=== PATIENT | male | born 1950 | race Caucasian/White ===

== ENCOUNTER 2025-08-30 09:45 | Outpatient (CLI) | payer MEDICARE, SELFPAY | END 2025-08-30 09:46 | disposition home or self-care (01) | LOC: CT 09:46 | PROVIDERS: PCP Family Medicine; Visit Provider Orthopaedic Surgery Sports Medicine | DX: Z01.818 Encounter for other preprocedural examination (principal); M19.012 Primary osteoarthritis, left shoulder | CPT/HCPCS: 73200 ==

== ENCOUNTER 2025-09-16 06:02 | Day surgery (SDC) | payer MEDICARE, SELFPAY ==
[2025-09-16] VITALS (22 sets, daily range): BP systolic 97–144; BP diastolic 58–88; PULSE 62–88; RESP 16; TEMP 36.2–36.9; O2SAT 92–97; BMI 25.5
[2025-09-16] MEDS: OXYCODONE (CR) 10 MG TAB.ER.12H PO (06:45)
[2025-09-16] MEDS: SODIUM CHLORIDE 0.9 % (FLUSH) 10 ML SYRINGE IVF (06:45)
[2025-09-16] MEDS: LACTATED RINGERS 1000 ML 1,000 ML 100 ML IV ×3 (06:45→13:06)
[2025-09-16] MEDS: ACETAMINOPHEN 500 MG TABLET 1000 MG PO (06:45)
--- NOTE | 2025-09-16 07:04 | SUR.PREOP ---
TIME?OUT:?0710 PT/RN/MDA?VERIFICATION?OF?SURGICAL?SITE,?PROCEDURE,?AND?CONSENT OBTAINED?PRIOR?TO?INVASIVE?PROCEDURE.
[2025-09-16] MEDS: MIDAZOLAM HCL 1 MG/ML inj IVP (07:10)
[2025-09-16] MEDS: TRANEXAMIC ACID 100 MG/ML INJ 1000 MG IV (07:30)
--- NOTE | 2025-09-16 07:34 | CRLHL7_ITS ---
For Patients: As a result of the Century Cures Act, medical imaging exams and procedure reports are released immediately into your electronic medical record. You may view this report before your referring provider. If you have questions, please contact your health care provider. INDICATION Shoulder replacement. TECHNIQUE Two view shoulder portable. IMPRESSION Postoperative changes in the soft tissues. Reversed shoulder arthroplasty components are intact left glenohumeral joint. Chronic arthrosis changes of the AC joint. No acute or suspicious osseous abnormality. Anatomic bony alignment. EZEQUIEL WOOTEN MD FACR Pediatric/Diagnostic Radiologist Cardiothoracic Imaging Transcribed: 11:26 a.m. [email or web address] jj/Dictated by: Ezequiel Wooten MD @ 09/16/2025 10:54:00 AM (Electronically Signed)
--- NOTE | 2025-09-16 07:35 | W.PM.H&PU ---
History & Physical Update History & Physical Update H&P Reviewed and patient assessed: No changes noted
--- NOTE | 2025-09-16 09:18 | PM.ORPRC ---
Procedure Note Date of procedure: 09/16/25 Procedure: PREOPERATIVE DIAGNOSIS: 1. Left shoulder osteoarthrosis, primary, severe with fair to poor rotator quality/integrity POSTOPERATIVE DIAGNOSIS: 1. Left shoulder osteoarthrosis, primary, severe with fair to poor cuff tissue quality 2. Left long head of the biceps tendinopathy and tenosynovitis PROCEDURE: 1. Left reverse shoulder arthroplasty. 2. Left long head of biceps open tenodesis SURGEON: Gómez Gonzales MD. RESOURCE AGENT: Blair NGUYEN - Of note, a skilled administrative assistant was critical for this case to aid in patient positioning, tissue retraction, limb manipulation/positioning, retraction for glenoid exposure, which was challenging, awareness and protection of critical structures, and closure. ANESTHESIA: General plus supraclavicular block EBL: 200 ml IMPLANTS: DJ0 surgical Altivate humeral stem size 10 standard shell, short with P2 porous coating vitamin E neutral poly small socket insert Altivate augmented glenoid base plate P2 porous coating with 4 perimeter locking screws 40 mm central screw 32 neutral glenosphere with retaining screw COMPLICATIONS: None evident INDICATIONS: The patient is a pleasant 74-year-old male who has experienced severe left shoulder pain and difficulty with use. Workup included imaging which revealed severe osteoarthrosis along with concern for rotator cuff quality. Physical exam was consistent with associated pain. Given the deformity, the dysfunction, and the pain, and failure of nonoperative management, recommendation was made for surgery. DESCRIPTION OF PROCEDURE: Following a thorough discussion of risks, benefits, and alternatives, consent was obtained and the left shoulder was marked. The patient was brought to the operating room and placed supine on the operating table. Induction of anesthesia was undertaken. 2 g IV Ancef and 1 g tranexamic acid was administered within 1 hr of incision preoperatively. Appropriate time-out was performed identifying proper patient, site, and procedure. The operative extremity was prepped and draped in the appropriate sterile fashion using ChloraPrep after the patient was positioned in the lazy beach chair position with head in neutral alignment and all bony prominences well padded. A longitudinal incision was made for deltopectoral approach. Deltoid was retracted laterally. Cephalic vein was identified and retracted laterally as well. Vein was spared/protected throughout the case. The clavipectoral fascia was identified and divided longitudinally staying lateral to the conjoined tendon / coracoid. The conjoined tendon was protected with a blunt Hohmann. The long head of the biceps tendon was identified and the bicipital sheath released. The upper 1/4 of the pectoralis major was also released from its insertion. The long head of the biceps was tenodesed to the pectoralis major tendon. The remaining proximal tendon tissue was excised. The rotator cuff was inspected and found to have good integrity with the subscapularis but fair integrity with a supraspinatus], and a decision for a reverse shoulder arthroplasty was confirmed. The long head of biceps, of note, was significant flattened, thickened, with abundant tenosynovitis. A subscapularis cuff of tissue was left via tenotomy for later repair with the remaining subscapularis released in a subperiosteal fashion with the Bovie. This was tagged for later repair. The 3 sisters were cauterized. The upper subscapularis was released from the capsule with a curved Torres scissors towards the glenoid. The inferior subscapularis was divided from the capsular tissue on its caudal surface with particular caution for the axillary nerve. This was palpated anterior to the subscapularis both prior to and near the finish of the case. Inferior humeral head osteophytes were excised with caution taken throughout the case with regards to the axillary nerve. The humerus was dislocated, and humeral head cut completed. Then a protector plate was applied. We turned our attention to the glenoid. The humerus was retracted posteriorly. The subscap was protected anteriorly and the labrum/long head biceps origin was excised circumferentially. The capsule was released along the anterior and inferior portions of the glenoid cautiously with a Mensah elevator being careful not to penetrate deep. The glenoid had appropriate exposure, and was prepared with the cannulated system with a target of approximately 5-10? of inferior tilt and neutral anteversion (patient had 20 ? of retroversion initially). Utilizing the match Point 3D printed guide, the guide pin was placed. The 3D printed jig removed and after placing the guide pin, reaming was undertaken with the angle of reaming guide consistent with the preoperative plan. Thereafter, the tap was placed. The real base plate was opened, and inserted, and excellent compression/purchase was achieved with the 40 mm central screw. Peripheral screws were then drilled, measured, and placed. The glenosphere was then placed consistent with the preoperative plan utilizing the above noted glenosphere. After securing the glenosphere with the locking, torque limited screw, attention was turned back to the humerus. A canal finder was placed followed by various reamers by hand. The real humeral stem was then opened and inserted with excellent metaphyseal fit and stability. Trial poly was placed and the shoulder reduced. Excellent reduction and stability achieved with appropriate tension on the conjoined tendon. At this stage, trial implants were removed, and the real implants inserted and the shoulder reduced. A 3 minute Betadine soak was performed followed by a thorough irrigation with normal saline. Subscapularis was repaired with #1 PDS to the cuff of tissue on the lesser tuberosity. Excellent reapproximation of tissue achieved. Hemostasis was found to be appropriate. The deltopectoral interval was reapproximated with 0 Vicryl, subcutaneous and subcuticular closure was then performed with number 2-0 Vicryl and 4-0 Monocryl, respectively. A skilled administrative assistant was critical for this case to aid in patient positioning, tissue retraction, limb manipulation/positioning, retraction for glenoid exposure, which was challenging, awareness and protection of critical structures, and closure. PLAN: 1. Sling at all times for the operative upper extremity. 2. AROM of elbow, forearm, wrist, and digits as tolerated. 3. PT/OT consults for education and assistance. 4. Social consult for discharge planning. 5. 23 hr perioperative antibiotics. 6. Early ambulation, and SCDs for DVT prophylaxis. 7. Admit to the hospital for the above 8. Analgesics p.r.n.
--- NOTE | 2025-09-16 09:34 | P.ANES_ITS ---
Anesthesia Charges Start Date/Time Anesthesia Start Date: 09/16/25 Anesthesia Start Time: 07:16 Stop Date/Time Anesthesia Stop Date: 09/16/25 Anesthesia Stop Time: 09:32 Summary Emergency: COLLISION TECHNICIAN Extremes of Age - Over 70 or under 1: MDA Coding CPT Codes CPT Codes: ANESTH SHOULDER REPLACEMENT - 36153 ([id number]) P2 - PATIENT W/MILD SYST DISEASE, QK - MARKETING BUDGET ANALYST 2-4 CNCRNT ANES PROC, QX - COLLISION TECHNICIAN SVC W/ MD MED DIRECTION Additional Codes: Summary - Extremes of Age - Over 70 or under 1: MDA ([id number]) Summary - Emergency: COLLISION TECHNICIAN ([id number])
--- NOTE | 2025-09-16 09:34 | W.PM.NB ---
Nerve Block Nerve Block Time Seen by Provider: 07:10 Date Seen: 09/16/25 Type of block requested by surgeon for post-operative analgesia: supraclavicular Side: left Time out performed: Yes Verification of patient name: Yes Verification of date of : Yes Site marking: site marked Name of person performing procedure: Andreas Continuous monitoring Was continuous monitoring of O2 sat, B/P, cardiac catheterization technician, recorded every 15 minutes?: Yes Procedure Checklist: sterile prep, needles and gloves Ultrasound guided. Images saved: Yes Medications given in 5ml increments after negative aspiration: Ropivicaine %: 0.5 mL: 20 Needle gauge: 22 Precedex (mcg): 25 Patient tolerated procedure well: Yes Block Charges Block Charge (with Pro Fee): Brachial Plexus Use of Ultrasound Machine for Block: Yes- US Guidance/pain block
--- NOTE | 2025-09-16 09:34 | W.ANESCHARGE ---
Anesthesia Charges Start Date/Time Anesthesia Start Date: 09/16/25 Anesthesia Start Time: 07:16 Stop Date/Time Anesthesia Stop Date: 09/16/25 Anesthesia Stop Time: 09:32 Summary Emergency: DIRECTOR OF PERIOPERATIVE SERVICES Extremes of Age - Over 70 or under 1: MDA Coding CPT Codes CPT Codes: ANESTH SHOULDER REPLACEMENT - 61900 ([id number]) P2 - PATIENT W/MILD SYST DISEASE, QK - SOCIAL DIRECTOR 2-4 CNCRNT ANES PROC, QX - DIRECTOR OF PERIOPERATIVE SERVICES SVC W/ MD MED DIRECTION Additional Codes: Summary - Extremes of Age - Over 70 or under 1: MDA ([id number]) Summary - Emergency: DIRECTOR OF PERIOPERATIVE SERVICES ([id number])
--- NOTE | 2025-09-16 09:35 | P.ANES_ITS ---
Anesthesia Charges Start Date/Time Anesthesia Start Date: 09/16/25 Anesthesia Start Time: 07:16 Stop Date/Time Anesthesia Stop Date: 09/16/25 Anesthesia Stop Time: 09:32 Summary Emergency: KITCHENWHERE MAKER Coding CPT Codes CPT Codes: ANESTH SHOULDER REPLACEMENT - 47014 ([id number]) P2 - PATIENT W/MILD SYST DISEASE, QK - DATA VISUALIZATION DEVELOPER 2-4 CNCRNT ANES PROC, QX - KITCHENWHERE MAKER SVC W/ MD MED DIRECTION Additional Codes: Summary - Emergency: KITCHENWHERE MAKER ([id number])
--- NOTE | 2025-09-16 09:35 | W.ANESCHARGE ---
Anesthesia Charges Start Date/Time Anesthesia Start Date: 09/16/25 Anesthesia Start Time: 07:16 Stop Date/Time Anesthesia Stop Date: 09/16/25 Anesthesia Stop Time: 09:32 Summary Emergency: BUSINESS PLANNING MANAGER Coding CPT Codes CPT Codes: ANESTH SHOULDER REPLACEMENT - 89346 ([id number]) P2 - PATIENT W/MILD SYST DISEASE, QK - BURR MILL OPERATOR 2-4 CNCRNT ANES PROC, QX - BUSINESS PLANNING MANAGER SVC W/ MD MED DIRECTION Additional Codes: Summary - Emergency: BUSINESS PLANNING MANAGER ([id number])
[2025-09-16] MEDS: ONDANSETRON 2 MG/ML inj 4 MG IVP (11:06)
--- NOTE | 2025-09-16 14:22 | SUR.PHASEII ---
Pt reported to OT he is having calf pain. Dr. Luciano aware and in to see pt.
--- NOTE | 2025-09-16 14:46 | SUR.PHASEII ---
Reviewed d/c instructions with pt and . Pt verbalized ready for discharge. Walked out with pt and .
== END 2025-09-16 14:52 | disposition home or self-care (01) ==
LOC: OR 06:04
PROVIDERS: PCP Family Medicine; Visit Provider Orthopaedic Surgery Sports Medicine
PROC: 0RRJ0JZ Replacement of Right Shoulder Joint with Synthetic Substitute, Open Approach (ICD-10-PCS; CPT 23472; principal; 2025-09-16 07:15)
DX: M19.012 Primary osteoarthritis, left shoulder (principal); M75.22 Bicipital tendinitis, left shoulder; G89.18 Other acute postprocedural pain
CPT/HCPCS: 23472; 23430; 01638; 64415; 73030; 76942; 97110; 97165; 97535; 99100; 99140; A9270; C1713; C1776; J0330; J0690; J1100; J2250; J2371; J2405; J2704; J2795; J3010; J7120